=== PATIENT | male | born 1970 | race Caucasian/White ===

== ENCOUNTER 2024-01-10 15:17 | Emergency (ER) | payer BC, SELFPAY ==
[2024-01-10 15:39] VITALS: BP 131/81
--- NOTE | 2024-01-10 16:06 | ED.GENMED ---
History of Present Illness
<Flora Grande PA-C - Last Filed: 01/10/24 18:36>
General
Chief Complaint: Numbness
Source: patient
Exam Limitations: none
Time Seen by Provider: 01/10/24 15:50
Nursing documentation reviewed up to this point in time: agreed with
Travel History
Have you had any contact with someone who has COVID-19?: No
Do you have any symptoms of coronavirus? Fever > 100 degrees, chills, cough, shortness of breath, sore throat, loss of taste or smell, muscle aches, or headache?: No
History of Present Illness
History of Present Illness:
Patient is a 53-year-old female with a history of type 2 diabetes presenting for evaluation of right lower extremity pain and weakness. Patient states that symptoms initially started yesterday with some mild discomfort in his right hip extending
down the lateral/posterior side of his right leg. When he woke up this morning pain was much more severe and has been unable to walk on it. Patient describes the pain as a sharp/burning pain which starts in his right hip and radiates down his
right thigh into his lower leg. Patient denies any fever or chills. Patient denies any back pain.
Patient denies any pain in his back. Patient denies any bowel/bladder incontinence or groin paresthesia. Patient denies any recent trauma or injury.
Patient did have similar symptoms many years ago and was treated by chiropractor for sciatica pain.
Past History
<Flora Grande PA-C - Last Filed: 01/10/24 18:36>
Past History
ED Past Medical History: NIDDM
ED Past Surgical History: None
Social History
Tobacco: Non-smoker
Alcohol: None
Drug: None
Personal:
Living: with family
Employment: Employed (corporate security)
Family History
Family History: Other (nc)
Review of Systems
<Floar Grande PA-C - Last Filed: 01/10/24 18:36>
Review of Systems
Allergies reviewed?: Yes
All Other Systems: ROS reviewed and negative except as documented in HPI and ROS
Phy Exam
<Flora Grande PA-C - Last Filed: 01/10/24 18:36>
Physical Exam
Physical Exam:
Vitals: Patient's vital signs are stable. Afebrile
General: Patient is well appearing, no acute distress. Nontoxic-appearing
Skin: Warm and dry, no rashes or lesions
Head: Normocephalic, atraumatic
Eyes: Sclera nonicteric. EOMs intact. No nystagmus.
Throat: Protecting airway
Neck: Normal ROM, no cervical spine tenderness, no meningismus. No midline spinal tenderness
Cardiac: Regular rate and rhythm, no murmurs.
Pulm: Normal respiratory effort, no wheezes, rales, rhonchi heard on exam.
Abdomen: Abdomen soft. No abdominal tenderness.
Extremities: Point tenderness at insertion of IT band at right hip with tenderness along right lateral leg. He does have pain with both internal/external rotation of hip and flexion of hip. No evidence of cyanosis or edema. Negative straight leg
raise on right. Good distal pulses. Sensation fully intact. No bony tenderness of right lower extremity.
Neuro: AAOx3. CN II-XII intact. No focal neurologic deficits.
Psychiatric: Normal affect.
Course
<Flora Grande PA-C - Last Filed: 01/10/24 18:36>
Orders/Labs/Results
Orders:
Orders
01/10/24 16:15
Ketorolac [Toradol] 15 mg IM NOW STA
Tramadol HCl [Ultram] 50 mg PO NOW STA
Hip, Right 2-3 Views [CR Hip - RT w/wo Pel 2-3 Vw*] Urgent
Comment:
Reason For Exam: Right hip pain with radiation down right leg
Include a pelvis x-ray?: Yes
Vital Signs
Initial and Last Documented VS:
Initial Vital Signs
Temp Pulse Resp BP Pulse Ox
98.8 F 95 18 131/81 98
01/10/24 15:39 01/10/24 15:39 01/10/24 15:39 01/10/24 15:39 01/10/24 15:39
Last Documented Vital Signs
Temp Pulse Resp BP Pulse Ox
98.8 F 95 18 131/81 99
01/10/24 15:39 01/10/24 15:39 01/10/24 15:39 01/10/24 15:39 01/10/24 16:30
<Surinder Gomes MD - Last Filed: 01/10/24 16:35>
Orders/Labs/Results
Orders:
Orders
01/10/24 16:15
Ketorolac [Toradol] 15 mg IM NOW STA
Tramadol HCl [Ultram] 50 mg PO NOW STA
Hip, Right 2-3 Views [CR Hip - RT w/wo Pel 2-3 Vw*] Urgent
Comment:
Reason For Exam: Right hip pain with radiation down right leg
Include a pelvis x-ray?: Yes
Vital Signs
Initial and Last Documented VS:
Initial Vital Signs
Temp Pulse Resp BP Pulse Ox
98.8 F 95 18 131/81 98
01/10/24 15:39 01/10/24 15:39 01/10/24 15:39 01/10/24 15:39 01/10/24 15:39
Last Documented Vital Signs
Temp Pulse Resp BP Pulse Ox
98.8 F 95 18 131/81 99
01/10/24 15:39 01/10/24 15:39 01/10/24 15:39 01/10/24 15:39 01/10/24 16:30
<Flora Grande PA-C - Last Filed: 01/10/24 18:36>
MDM/Problems Addressed
Differential Diagnosis Includes:
Not limited to: Muscular strain, lumbar radiculopathy, IT band syndrome, zoster, doubt infectious process
MDM/Problems Addressed:
53-year-old male with history of type 2 diabetes presenting for evaluation of right hip pain radiating down right leg. Symptoms have been ongoing since yesterday with acute worsening this morning. He denies any known trauma or injuries. Pain is
much worse with movement. There is no associated back pain, fever, or chills. He has no red flag back pain symptoms. Vital signs are stable. He is afebrile. Exam as above. Patient has point tenderness at right lateral hip and down right
lateral leg which seems to be consistent with IT band syndrome. No midline spinal tenderness. No rashes or surrounding erythema to suggest zoster or other infectious process. It is possible that this is lumbar radiculopathy, as well. Will give
Toradol, check x-ray of hip. Will reassess.
X-ray negative for any acute abnormalities of right hip. Patient does feel somewhat improved following IM Toradol. Attending physician did discuss stretching recommendations for IT band. At this point patient is feeling better and ready for
discharge. Recommended stretching, NSAIDs, PCP follow-up. He may benefit from physical therapy in the future. Return precautions discussed at length.
Chronic conditions affecting care:
Type 2 diabetes
Acute Exacerbation and/or Progression of Chronic Illness:
N/A
<Flora Grande PA-C - Last Filed: 01/10/24 18:36>
*Radiology
Radiology exam reviewed: preliminary read by ED provider (No acute abnormalities)
*Pulse Oximetry
Patient hypoxic: no
*EKG
Interpreted by ED Provider?: NA
*Vending Machine Coin Collector Interpretation
Rate: Vending Machine Coin Collector- N/A
*Critical Care Note
Total Time (30-74mins, 75-104mins- exclusive of procedures): Not Applicable
ED Attending Note
<Flora Grande PA-C - Last Filed: 01/10/24 18:36>
-
Portions of this chart may have been created with voice recognition software.� Occasional wrong word or��sound alike� substitutions may have occurred due to the inherent limitations of voice recognition software.
<Surinder Gomes MD - Last Filed: 01/10/24 16:35>
ED Attending Note
Patient seen and examined by attending physician: Yes
ED Attending Note:
I have seen and evaluated the patient with a [id number] encounter. I have spoken to the advance practicer provider and involved in the medical history, the physical exam, medical decision making.
Evaluation and management service: agree unless noted differently below.
Results interpretation: agree unless noted differently below.
Focused HPI: 53-year-old male with history of diabetes presents to the emergency room for evaluation of right hip/leg pain. Patient reports pain started yesterday while he was on a 4-1/2 mile walk with his and this morning he woke up with
continued pain and limp. He says that the pain is in the right lateral hip and radiates down the lateral leg towards the knee. It is worse with movement of the hip, better when sitting still. He denies any associated back pain. He denies any
associated falls or trauma. He denies any fevers or chills. He denies any other complaints.
Physical exam: Awake and alert lying flat in the bed. Vital signs are normal. He has point tenderness along the IT band in the right leg. He has pain with internal rotation of the right hip and with passive flexion at the hip as well as with
adduction. He has a negative straight leg raise test. He has good strength 5/5 distal right lower extremity and sensory intact. He has a strong right DP pulse and a strong right femoral pulse. There is no rash or erythema in the area of concern.
Medical Decision Makin-year-old male presents for evaluation of right leg pain started gradually last night and worse today. Exam as above. Suspect likely IT band syndrome based on his exam. Lumbar radiculopathy in the differential diagnosis
but somewhat lower suspicion. Will plan to treat with NSAIDs. Check an x-ray of the hip. Reassess after the above.
Discharge Plan
Departure
Patient Disposition: Home (Routine Discharge)
Date of Disposition: 01/10/24
Time of Disposition: 17:23
Patient with high blood pressure during this ER visit?: No
Condition: Good
Covid-19: Not Applicable
Discharge Problem:
Leg pain, right
Instructions: Radiculopathy (DC), Iliotibial Band Syndrome (DC)
Prescriptions:
No Action
glyburide 5 MG tablet
5 mg PO DAILY
ondansetron HCl 4 MG tablet
4 mg PO BIDPRN PRN (Reason: nausea)
metformin 1,000 MG tablet
1,000 mg PO BID
montelukast 10 MG tablet
10 mg PO DAILY
Referrals:
Astrid Boston PA-C [Family Provider] - Follow up in 5-7 days
Activity Restrictions/Additional Instructions:
Return to the emergency department with any fevers, severe back pain, intractable pain, loss of bowel/bladder control, worsening weakness or numbness of lower extremities, worsening in current symptoms, or any other concerns
-It is important that you diligently stretch your right IT band as shown in the emergency department
-You should take ibuprofen/Motrin as needed for discomfort. You can take 400 mg every 4-6 hours. Apply ice/heat as needed for discomfort.
-Follow-up with your primary care provider for further evaluation/management. You may benefit from therapy in the future.
Interventions
Interventions:
*Risk Screen - Suicide Last Done: 01/10/24 15:43
*General Assessment Last Done: 01/10/24 15:43
*Neglect/Abuse Screening Last Done: 01/10/24 15:43
ED- Fall Risk Assessment Last Done: 01/10/24 17:39
*ED COVID-19 Vaccine History Last Done: 01/10/24 16:30
*Nursing Disposition Last Done: 01/10/24 17:39
ED-Musculoskeletal Assessment Last Done: 01/10/24 16:30
ED- Neurological Assessment Last Done: 01/10/24 16:30
Discharge Date and Time
Discharge Date/Time: 01/10/24 17:39
Print Language: BAHAMIAN
[2024-01-10] MEDS: TORADOL 15 MG IM (16:31)
== END 2024-01-10 17:39 | disposition home or self-care (01) ==
LOC: EMR 15:17
PROVIDERS: EMERGENCY PHYSICIAN Emergency Medicine; FAMILY PHYSICIAN Physician Assistant Medical
DX: M79.604 Pain in right leg (principal); R53.1 Weakness; R26.2 Difficulty in walking, not elsewhere classified; M79.651 Pain in right thigh; M25.551 Pain in right hip; R20.0 Anesthesia of skin; R20.2 Paresthesia of skin; E11.9 Type 2 diabetes mellitus without complications; Z79.84 Long term (current) use of oral hypoglycemic drugs; Z91.048 Other nonmedicinal substance allergy status
CPT/HCPCS: 99284; 96372; 73502

== ENCOUNTER 2024-12-08 21:14 | Emergency (ER) | payer BC, SELFPAY ==
[2024-12-08 21:16] VITALS: BP 154/93
[2024-12-08 21:37] LABS: Urine Albumin Negative (Neg - Trace); Urine Bilirubin Negative (Negative); Urine Character Clear (Clear); Urine Color Yellow; Urine Glucose 4+ (Negative); Urine Ketone Negative (Negative); Urine Leukocyte Negative (Negative); Urine Nitrite Negative (Negative); Urine Occult Blood Negative (Negative); Urine Urobilinogen Negative (Neg - 1+)
[2024-12-09 00:47] LABS: % Basophils 0.6 % (0-2); % Eosinophils 0.8 % (0-6); % Immature Granulocytes 1.2 % (0-0.5); % Lymphocytes 20.7 % (20.5-51.1); % Monocytes 7.5 % (1.7-9.3); % Neutrophils 69.2 % (42.2-75.2); Absolute Basophils 0.1 10^3/uL (0-0.2); Absolute Eosinophils 0.1 10^3/uL (0-0.7); Absolute Immature Granulocytes 0.1 10^3/uL (0-0.05); Absolute Lymphocytes 2.2 10^3/uL (1.2-3.4); Absolute Monocytes 0.8 10^3/uL (0.1-0.6); Absolute Neutrophils 7.4 10^3/uL (1.4-6.5); Hematocrit 41.3 % (39.0-52.0); Mean Corp Hgb Conc. 33.9 g/dL (33.0-37.0); Mean Corpuscular Hgb 28.7 pg (27.0-31.0); Mean Corpuscular Volume 84.6 fL (80.0-94.0); Mean Platelet Volume 9.6 fL (7.4-10.4); Nucleated Red Blood Cells % 0 % (-); Platelet Count 322 10^3/uL (130-400); Red Blood Cell Count 4.88 10^6/uL (4.70-6.10); Red Cell Dist. Width 12.3 % (11.5-14.5); White Blood Cell Count 10.7 10^3/uL (4.8-10.8)
[2024-12-09 00:50] LABS: Lactic Acid 1.7 mmol/L (0.7-2.0)
--- NOTE | 2024-12-09 00:55 | ED.GENMED ---
History of Present Illness
<Himanshu Parrish PA-C - Last Filed: 12/09/24 01:01>
General
Chief Complaint: Male Genito-Urinary Symptoms
Time Seen by Provider: 12/08/24 23:32
History of Present Illness
History of Present Illness:
54-year-old male with history of ryr-iohxbqf-ahftmwcqa diabetes presents to the emergency department for evaluation of perineal discomfort ongoing for the past 2 days and worsening since onset. No associated dysuria or hematuria. No fevers or
chills. Denies any trauma to the area. Increasing discomfort when ambulating concerned him to come to the ER today.
Past History
<Himanshu Parrish PA-C - Last Filed: 12/09/24 01:01>
Past History
ED Past Medical History: NIDDM
ED Past Surgical History: None
Social History
Tobacco: Non-smoker
Alcohol: None
Drug: None
Personal:
Living: with family
Employment: Employed (corporate security)
Family History
Family History: Other (nc)
Review of Systems
<Himanshu Parrish PA-C - Last Filed: 12/09/24 01:01>
Review of Systems
Allergies reviewed?: Yes
All Other Systems: ROS reviewed and negative except as documented in HPI and ROS
Phy Exam
<Himanshu Parrish PA-C - Last Filed: 12/09/24 01:01>
Physical Exam
Physical Exam:
GEN: Well appearing, NAD, WDWN
HEENT: Oral mucosa moist, no scleral icterus
Cardiac: Regular rate
Lung: No respiratory distress, no tachypnea
: Reproduced tenderness to the anterior perineum, no erythema or induration, no fluctuance, unremarkable scrotum and testes, no inguinal hernia or adenopathy, no crepitance to the perineum
MSK: No gross deformity or injuries
Skin: Good color, no pallor or jaundice, no rashes
Neuro: AO x3, moves all extremities freely
Psych: Calm, cooperative
Course
<Himanshu Parrish PA-C - Last Filed: 12/09/24 01:01>
Orders/Labs/Results
Orders:
Orders
12/08/24 21:28
Urine Culture Reflexed from UA [Urinalysis Reflex To Culture] Urgent
Date Specimen was Collected: 12/08/24
Time Specimen was Collected: 21:23
12/08/24 23:58
Complete Blood Count/With Diff Urgent
Comprehensive Metabolic Panel Urgent
Lactic Acid Q4H
Comment: CANCEL 2nd LACTIC ACID IF 1st LACTIC ACID IS LESS THAN 2
12/09/24
CT Pelvis With Iv Contrast Urgent
Reason For Exam: perineal pain
12/09/24 01:06
Ketorolac [Toradol] 15 mg IV NOW STA
Abnormal Lab Results
12/08/24 12/09/24
21:28 00:16
Abs Immat Gran (auto) 0.1 H 10^3/uL
(0-0.05)
Absolute Neuts (auto) 7.4 H 10^3/uL
(1.4-6.5)
Absolute Monos (auto) 0.8 H 10^3/uL
(0.1-0.6)
Immature Gran % 1.2 H %
(0-0.5)
BUN 32 H mg/dl
(9-20)
Glucose 172 H mg/dl
(70-99)
Calcium 12.8 H mg/dl
(8.4-10.2)
Urine Glucose 4+ A
(Negative)
12/09/24 00:16
12/09/24 00:16
Vital Signs
Initial and Last Documented VS:
Initial Vital Signs
Temp Pulse Resp BP Pulse Ox
97.7 F 98 20 154/93 98
12/08/24 21:16 12/08/24 21:16 12/08/24 21:16 12/08/24 21:16 12/08/24 21:16
Last Documented Vital Signs
Temp Pulse Resp BP Pulse Ox
97.7 F 82 16 145/89 95
12/09/24 01:36 12/09/24 01:36 12/09/24 01:36 12/09/24 01:36 12/09/24 01:36
<Arabella Romeo PA-C - Last Filed: 12/09/24 03:02>
Orders/Labs/Results
Orders:
Orders
12/08/24 21:28
Urine Culture Reflexed from UA [Urinalysis Reflex To Culture] Urgent
Date Specimen was Collected: 12/08/24
Time Specimen was Collected: 21:23
12/08/24 23:58
Complete Blood Count/With Diff Urgent
Comprehensive Metabolic Panel Urgent
Lactic Acid Q4H
Comment: CANCEL 2nd LACTIC ACID IF 1st LACTIC ACID IS LESS THAN 2
12/09/24
CT Pelvis With Iv Contrast Urgent
Reason For Exam: perineal pain
12/09/24 01:06
Ketorolac [Toradol] 15 mg IV NOW STA
Abnormal Lab Results
12/08/24 12/09/24
2128 00:16
Abs Immat Gran (auto) 0.1 H 10^3/uL
(0-0.05)
Absolute Neuts (auto) 7.4 H 10^3/uL
(1.4-6.5)
Absolute Monos (auto) 0.8 H 10^3/uL
(0.1-0.6)
Immature Gran % 1.2 H %
(0-0.5)
BUN 32 H mg/dl
(9-20)
Glucose 172 H mg/dl
(70-99)
Calcium 12.8 H mg/dl
(8.4-10.2)
Urine Glucose 4+ A
(Negative)
12/09/24 00:16
12/09/24 00:16
Vital Signs
Initial and Last Documented VS:
Initial Vital Signs
Temp Pulse Resp BP Pulse Ox
97.7 F 98 20 154/93 98
12/08/24 21:16 12/08/24 21:16 12/08/24 21:16 12/08/24 21:16 12/08/24 21:16
Last Documented Vital Signs
Temp Pulse Resp BP Pulse Ox
97.7 F 82 16 145/89 95
12/09/24 01:36 12/09/24 01:36 12/09/24 01:36 12/09/24 01:36 12/09/24 01:36
<Arabella Romeo PA-C - Last Filed: 12/09/24 03:02>
*Pulse Oximetry
Patient hypoxic: no
*Critical Care Note
Total Time (30-74mins, 75-104mins- exclusive of procedures): Not Applicable
<Arabella Romeo PA-C - Last Filed: 12/09/24 03:02>
Update Note
Update Note:
Follow-up update 3:00 AM:
Arabella Romeo PA-C
I received patient in signout. On my physical exam, patient is well-appearing in no acute distress he is no abdominal tenderness. He does state that he does have dull pain in his groin still remaining. His CAT scan of the pelvis shows no acute
abnormality identified no evidence of mass or fluid collection. No concern for alcira's gangrene in light of sulfonylurea use. Advise patient to use NSAIDs as needed for pain. Patient stable for discharge. Advised patient to follow-up with
PCP. Return precautions discussed.
ED Attending Note
<Himanshu Parrish PA-C - Last Filed: 12/09/24 01:01>
-
Portions of this chart may have been created with voice recognition software.� Occasional wrong word or��sound alike� substitutions may have occurred due to the inherent limitations of voice recognition software.
Discharge Plan
Departure
Prescriptions:
No Action
glyburide 5 MG tablet
5 mg PO DAILY
ondansetron HCl 4 MG tablet
4 mg PO BIDPRN PRN (Reason: nausea)
metformin 1,000 MG tablet
1,000 mg PO BID
montelukast 10 MG tablet
10 mg PO DAILY
Referrals:
Astrid Boston PA-C [Family Provider] -
Interventions
Interventions:
*General Assessment Last Done: 12/08/24 21:16
ED-Male Genitourinary Assessment Last Done: 12/08/24 23:20
Discharge Date and Time
Print Language: COMORAN
[2024-12-09 00:59] LABS: ALT (SGPT) 23 U/L (0-50); AST (SGOT) 21 U/L (17-59); Albumin 4.5 g/dl (3.5-5.0); Alkaline Phosphatase 45 U/L (38-126); Blood Urea Nitrogen 32 mg/dl (9-20); Calcium 12.8 mg/dl (8.4-10.2); Carbon Dioxide 29 mmol/L (22-30); Chloride 101 mmol/L (98-107); Glucose 172 mg/dl (70-99); Potassium 4.5 mmol/L (3.5-5.1); Sodium 141 mmol/L (135-145); Total Bilirubin 0.7 mg/dl (0.2-1.3); Total Protein 7.1 g/dl (6.3-8.2); eGFR > 60.00
[2024-12-09] MEDS: TORADOL 15 MG IV (01:09)
[2024-12-09 01:36] VITALS: BP 145/89
[2024-12-09 03:22] VITALS: BP 160/108
== END 2024-12-09 03:23 | disposition home or self-care (01) ==
LOC: EMR 21:14
PROVIDERS: Physician Assistant; EMERGENCY PHYSICIAN Emergency Medicine; FAMILY PHYSICIAN Physician Assistant Medical
DX: R10.2 Pelvic and perineal pain (principal); E11.9 Type 2 diabetes mellitus without complications
CPT/HCPCS: 96374; 99284; 72193; 80053; 81003; 83605; 85025; Q9967